=== PATIENT | female | born 1975 | race Caucasian/White ===

== ENCOUNTER → 2024-05-25 | Outpatient (CLI) | payer BC ==
--- NOTE | 2024-05-28 11:20 | MM ---
Reason for Exam: Screening (asymptomatic). Last mammogram was performed 2 year(s) and 5 month(s) ago. Patient History: Menarche at age 11. First Full-Term at age 16. Perimenopausal. Maternal aunt had breast cancer, age 55. Maternal aunt had breast cancer, age 55. Paternal aunt had breast cancer, age 50. Risk Values: Shauna 5 year model risk: 0.7%. NCI Lifetime model risk: 7.4%. Prior Study Comparison: 06/25/2012 Bilateral Diagnostic Mammogram, [facility]. 12/16/2017 Bilateral Screening Mammogram, [facility]. 01/14/2018 Right Diagnostic Mammogram, [facility]. 05/13/2018 Right Diagnostic Mammogram, [facility]. 06/18/2019 Bilateral Screening Mammogram, [facility]. 07/30/2019 Right Diagnostic Mammogram, [facility]. 12/19/2021 Bilateral Screening Mammogram, [facility]. Tissue Density: The breasts are heterogeneously dense, which may obscure small masses. Findings: Analyzed By CAD. Right breast: There is no suspicious group of microcalcifications or new suspicious mass. Left breast: There is no suspicious group of microcalcifications or new suspicious mass. Overall Assessment: Negative, BI-RAD 1 Management: Screening Mammogram of both breasts in [address] [facility] will attempt to contact patient to return for supplemental views and ultrasound if indicated. Patient should continue monthly self-breast exams. A clinical breast exam by your physician is recommended on an annual basis. This exam should not preclude additional follow-up of suspicious palpable abnormalities. Note on Shauna scores and lifetime risk: 1. A Shauna score greater than 3% is considered moderate risk. If this is the case, consider specialist referral to assess eligibility for a risk reducing agent. 2. If overall lifetime risk for the development of breast cancer is 20% or higher, the patient may qualify for future screening with alternating mammogram and breast MRI. [facility], , 05/28/2024 11:16 AM. Electronically signed and approved by: Blane Rizzo DO
== END | disposition home or self-care (01) ==
LOC: RADMAMWWP 09:44
PROVIDERS: ATTEND Family Medicine
DX: Z12.31 Encounter for screening mammogram for malignant neoplasm of breast (principal); R92.333 Mammographic heterogeneous density, bilateral breasts; Z80.3 Family history of malignant neoplasm of breast
CPT/HCPCS: 77063; 77067